=== PATIENT | female | born 1980 | race Two or more races ===

== ENCOUNTER 2019-05-21 11:43 | Emergency (ER) | payer BC, OTHER ==
[~2019-05-21] VITALS: Ht 157.5 cm; Wt 86.2 kg
[2019-05-21 12:58] LABS: Urine Bacteria NONE SEEN /hpf (None Seen); Urine Blood Negative /uL (Negative); Urine Specific Gravity 1.027 (1.001-1.035); Urine WBC 5 /hpf (0 - 5)
[2019-05-21 13:15] LABS: Basophils # (auto) 0.1 uL; Basophils % (auto) 1.1 % (0.0-2.0); Eosinophils # (auto) 0.1 uL; Eosinophils % (auto) 0.8 % (0.0-7.0); Hemoglobin 12.9 g/dL (12.2-16.2); Lymphocytes # (auto) 1.2 uL; Lymphocytes % (auto) 14.4 % (10.0-50.0); Mean Corpuscular Hemoglobin 30.8 pg (28.0-32.0); Mean Corpuscular Volume 90.5 fL (80.0-100.0); Monocytes # (auto) 0.5 uL; Monocytes % (auto) 6.1 % (0.0-12.0); Neutrophils # (auto) 6.6 uL; Neutrophils % (auto) 77.6 % (37.0-80.0); Platelet Count (auto) 325 10^3/uL (140-450); Red Cell Distribution Width 14.5 % (11.8-14.3); White Blood Cell 8.5 10^3/uL (4.4-10.8)
[2019-05-21 13:32] LABS: Albumin 3.4 g/dL (3.4-5.0); BUN/Creatinine Ratio 24.1; Calcium 8.3 mg/dL (8.5-10.1); Potassium 3.9 mmol/L (3.5-5.1)
[2019-05-21 13:34] LABS: Bilirubin, Total 0.2 mg/dL (0.2-1.0); Total Protein 7.4 g/dL (6.4-8.2)
[2019-05-21] MEDS ORDERED: SODIUM CHLORIDE 0.9% 1,000 ML IVB ONE (14:45)
[2019-05-21] MEDS ORDERED: ONDANSETRON HCL 4 MG/2 ML VIAL IV ONE (14:45)
[2019-05-21 15:32] LABS: INR < 0.93 (0.9-1.15); Partial Thromboplastin Time 31.3 sec (23.64-32.05)
[2019-05-21] MEDS ORDERED: PHENAZOPYRIDINE HCL 100 MG TAB PO ONE (16:15)
[2019-05-21 20:26] VITALS: BP 115/71
== END 2019-05-21 21:18 | disposition home or self-care (01) ==
LOC: ER 11:49
DX: R11.2 Nausea with vomiting, unspecified (principal); R42 Dizziness and giddiness; M06.9 Rheumatoid arthritis, unspecified
CPT/HCPCS: 36415; 70450; 71045; 80053; 81001; 81025; 83735; 85025; 85610; 85730; 94761; 96361; 96374; 99284; J2405; J7030

== ENCOUNTER 2019-11-24 10:16 | Emergency (ER) | payer BC ==
[~2019-11-24] VITALS: Ht 149.9 cm; Wt 86.2 kg
[2019-11-24 10:28] VITALS: BP 139/86
[2019-11-24 10:55] LABS: Basophils # (auto) 0.1 uL; Basophils % (auto) 0.8 % (0.0-2.0); Eosinophils # (auto) 0 uL; Eosinophils % (auto) 0.2 % (0.0-7.0); Hematocrit 39.1 % (36.0-46.0); Hemoglobin 13.2 g/dL (12.2-16.2); Lymphocytes # (auto) 0.2 uL; Lymphocytes % (auto) 3.7 % (10.0-50.0); Mean Corpuscular Hemoglobin 30.2 pg (28.0-32.0); Mean Corpuscular Hgb Conc. 33.7 g/dL (32.0-36.0); Mean Corpuscular Volume 89.4 fL (80.0-100.0); Monocytes # (auto) 0.4 uL; Monocytes % (auto) 6.6 % (0.0-12.0); Neutrophils # (auto) 5.9 uL; Neutrophils % (auto) 88.7 % (37.0-80.0); Platelet Count (auto) 278 10^3/uL (140-450); Red Blood Cells 4.37 10^6/uL (4.0-5.20); Red Cell Distribution Width 14.2 % (11.8-14.3); White Blood Cell 6.6 10^3/uL (4.4-10.8)
[2019-11-24 11:13] LABS: Albumin 3.5 g/dL (3.4-5.0); Anion Gap 7 (5-15); Blood Urea Nitrogen 11 mg/dL (7-18); Calcium 8.1 mg/dL (8.5-10.1); Carbon Dioxide 22 mmol/L (21-32); Chloride 105 mmol/L (98-107); Glucose 114 mg/dL (74-106); INR 0.97 (0.9-1.15); Magnesium 2.3 mg/dL (1.6-2.6); Partial Thromboplastin Time 31.9 sec (23.64-32.05); Sodium 134 mmol/L (136-145)
[2019-11-24 11:19] LABS: Alanine Aminotransferase 77 U/L (13-56); Alkaline Phosphatase 102 U/L (45-117); Aspartate Aminotransferase 88 U/L (15-37); BUN/Creatinine Ratio 13.8; Bilirubin, Total 0.2 mg/dL (0.2-1.0); GFR African American 103 mL/min; GFR Non-African American 85 mL/min; Total Protein 7.3 g/dL (6.4-8.2)
[2019-11-24] MEDS ORDERED: IOHEXOL 350 MG/ML 100ML IJ ONE (13:43)
== END 2019-11-24 16:41 | disposition left against medical advice (07) ==
LOC: ER 10:16 → EDBD 10:16 → ER 16:41
DX: R79.89 Other specified abnormal findings of blood chemistry (principal); R79.1 Abnormal coagulation profile; M19.90 Unspecified osteoarthritis, unspecified site; Z53.29 Procedure and treatment not carried out because of patient's decision for other reasons
CPT/HCPCS: 36415; 71045; 80053; 83735; 83880; 84484; 84702; 85025; 85379; 85610; 85730